=== PATIENT | female | born 1970 | race Caucasian/White ===

== ENCOUNTER → 2016-05-17 | Outpatient (CLI) | payer MEDICAID ==
[~2016-05-17] MED LIST: ALPRAZOLAM0.5 MG PO; BENADRYL ALLERG25 M3 PO; MACROBID100 M3 PO; PREDNISONE20 MG PO; Pepcid20 MG PO; TRAMADOL 50MG T50 M1 PO
[2016-05-17 14:25] LABS: AMPHETAMINES/METAMPHETAMINES NEGATIVE ng/mL (<1000)
== END ==
LOC: LAB 13:45
PROVIDERS: Emergency Medicine
DX: Z79.899 Other long term (current) drug therapy (principal)

== ENCOUNTER → 2016-08-25 | Outpatient (CLI) | payer MEDICAID ==
[2016-08-25 15:20] LABS: AMPHETAMINES/METAMPHETAMINES NEGATIVE ng/mL (<1000)
== END ==
LOC: LAB 13:26
PROVIDERS: Emergency Medicine
DX: Z79.899 Other long term (current) drug therapy (principal)

== ENCOUNTER → 2016-09-22 | Outpatient (CLI) | payer MEDICAID ==
[2016-09-22 15:36] LABS: AMPHETAMINES/METAMPHETAMINES NEGATIVE ng/mL (<1000)
== END ==
LOC: LAB 13:58
PROVIDERS: Emergency Medicine
DX: Z79.899 Other long term (current) drug therapy (principal)

== ENCOUNTER → 2017-01-12 | Outpatient (CLI) | payer MEDICAID ==
[2017-01-12 12:17] LABS: AMPHETAMINES/METAMPHETAMINES NEGATIVE ng/mL (<1000)
== END ==
LOC: LAB 11:20
PROVIDERS: Emergency Medicine
DX: Z79.899 Other long term (current) drug therapy (principal)

== ENCOUNTER → 2017-01-31 | Outpatient (CLI) | payer MEDICAID ==
--- NOTE | 2017-02-01 09:38 | RADIOLOGY REPORT PS360 ---
MRI-C-SPINE W/O, MRI-3D RENDERING/MYELOGRAM HISTORY: LUMBAR DISC DISEASE, NECK PAIN Neck pain 1 year bilateral arm pain numbness and tingling. Patient Age: 46 years: Female Ordering Physician: Raji Garza MD TECHNIQUE: Sagittal STIR, T1, T2, axial T1 and T2. On 1.5T Siemens wide bore MRI. 3-D MR myelogram image set obtained & performed on MRI workstation. Additional sagittal thin section T2 weighted dataset obtained from this latter acquisition as well (---76 CPT) COMPARISON :None available FINDINGS Cervical vertebral bodies are intact with no lesion or compression fracture. . Adequate volume underlying osseous cervical canal. Cervical cranial junction is normal. C2/3, C3/4,: disc intact and unremarkable C4/5.. Scant central disc prominence at midline. No significant protrusion C5-C6. Mild disc space narrowing. Mild diffuse spondylosis and disc bulge. Additional disc protrusion, most evident just to right of midline,,. This does abut & mildly effaces cervical cord just to the right of midline. The sagittal view shows slight caudal extrusion of this modest disc extrusion which extends along the posterior aspect of superior C6. Also Mild bilateral foraminal encroachment due to the disc & minor posterior spurring features noted..Plain film correlation would be suggested as well C6/7. Disc space is fairly well-maintained. Mild undulating disc protrusion posteriorly. At Midline this mild disc protrusion only slight indents the thecal sac;. There is also mild disc protrusion again again seen towards left paracentral towards inferior left foramen. Mild encroachment at entry of left foramen... Minor spinal stenosis is seen at both of these levels mentioned above. AP dimension spinal canal 9 mm at C5/6 and C6/7 C7/T1, T1/T2, T2/T3 disc intact. Neuroforamen patent. 3-D MR myelogram image set demonstrates the indentation upon the thecal sac at C5-C6 and C6/7. IMPRESSION Degenerative disc findings most evident C5-C6 followed by C6/7: C5-C6.... Mild broad-based minimal disc herniation, most evident to the right of midline & seen extending slightly caudal to the this disc.-This does mildly efface the cervical cord to the right of midline. Also mild bilateral foraminal encroachment due to the mild spondylosis and disc bulge otherwise seen C6/7. Mild undulating disc protrusion midline as well as to the left. This mainly indents the thecal sac at midline where it nearly abuts the cervical cord. Also mild impingement upon the left aspect of thecal sac towards left foramen Borderline to minor canal stenosis results at each of these above levels.
--- NOTE | 2017-02-01 09:49 | RADIOLOGY REPORT PS360 ---
MRI-L-SPINE W/O HISTORY: LUMBAR DISC DISEASE, NECK PAIN Patient Age: 46 years: Female Ordering Physician: Raji Garza MD TECHNIQUE: Sagittal STIR, T1, T2, axial T1 and T2. On 1.5T Siemens wide bore MRI. 3-D MR myelogram image set obtained & performed on MRI workstation. Additional sagittal thin section T2 weighted dataset obtained from this latter acquisition as well (---76 CPT) COMPARISON : FINDINGS The lumbar vertebral bodies appear intact with no compression fracture nor lesion. The disc spaces are actually fairly well-maintained except to note some slight narrowing and loss of hydration at L3/4 L5/S1 : Disc intact mild facet & ligament flavum hypertrophy. L4/5 disc intact. Modest AP dimension the neural foramen with mild facet arthropathy and minimal ligament flavum hypertrophy. L3/4 mild degenerative disc space narrowing. Mild spondylosis with Diffuse disc bulge... Moderate to generous facet hypertrophy. Combination features does narrow the spinal canal with appearance of borderline/ mild spinal stenosis developing at this level. Mild bilateral foraminal encroachment most evident to the right due to the disc bulge. There is likely some associated minimal posterior marginal osteophytes associated disc bulge & contributing to the mild foraminal encroachment bilateral along with the disc bulge. L 2/3 disc intact,.. Mild facet arthropathy/hypertrophy noted. L1/2 disc intact. Facets unremarkable. T12/L1, T11/12 and T10-11 intact. 3-D myelogram image set shows narrowing of the thecal sac at L3/4 reflecting the borderline to mild central canal stenosis here. Slight anterior indentation upon the thecal sac at L4/5 also noted due to the mild facet hypertrophy IMPRESSION: Developing degenerative disc changes most evident at L3/4 & to much lesser degree of the level. L3/4.: Degenerated disc.. Mild Spondylosis with mild disc bulge. Generous facet hypertrophy most evident on right. Combination of features yields borderline to mild central canal stenosis, as well as mild bilateral foraminal encroachment.
== END ==
LOC: RAD 01-24 14:00
DX: M54.16 Radiculopathy, lumbar region (principal); M54.2 Cervicalgia

== ENCOUNTER → 2017-02-07 | Outpatient (CLI) | payer MEDICAID ==
[2017-02-07 14:54] LABS: AMPHETAMINES/METAMPHETAMINES NEGATIVE ng/mL (<1000)
== END ==
LOC: LAB 13:55
PROVIDERS: Emergency Medicine
DX: Z79.899 Other long term (current) drug therapy (principal)

== ENCOUNTER → 2017-03-24 | Outpatient (CLI) | payer MEDICAID ==
--- NOTE | 2017-03-29 13:16 | RADIOLOGY REPORT PS360 ---
DIG MAMM-SCREEN [facility] W/CAD CAD Screening ORDERING PHYSICIAN : Vickey Garcia MD PATIENT AGE: 46 years GENDER: Female COMPARISON: Previous mammograms: Previous mammogram bilateral 12/15/2015 with right mammogram 01/06/2016. INDICATION: Routine screening takes control pills.. No new complaints. Family history. Mother and grandmother with breast cancer TECHNIQUE: Standard CC and MLO images were obtained. R2 CAD reviewed. FINDINGS: Lower density breast bilaterally with no dominant mass nor suspicious calcifications either breast. No architectural distortion. RIGHT BREAST: Stable with no new findings. LEFT BREAST:. Stable with no new findings. Follow-up in one year adequate IMPRESSION: Stable mammogram with no areas of significant concern Follow-up in one year recommended BI-RADS CATEGORY: 1_Negative RECOMMENDED FOLLOWUP: 12M 12 MONTH FOLLOW-UP (A letter has been sent to the patient regarding results of the study.)
== END ==
LOC: RAD 10:00
DX: Z12.31 Encounter for screening mammogram for malignant neoplasm of breast (principal)
CPT/HCPCS: G0202

== ENCOUNTER → 2017-04-06 | Outpatient (CLI) | payer MEDICAID ==
[2017-04-06 16:36] LABS: AMPHETAMINES/METAMPHETAMINES NEGATIVE ng/mL (<1000)
== END ==
LOC: LAB 14:24
PROVIDERS: Emergency Medicine
DX: R94.6 Abnormal results of thyroid function studies (principal); Z79.899 Other long term (current) drug therapy

== ENCOUNTER → 2017-04-25 | Outpatient (CLI) | payer MEDICAID ==
[2017-04-25 14:25] LABS: AMPHETAMINES/METAMPHETAMINES NEGATIVE ng/mL (<1000)
== END ==
LOC: LAB 12:26
PROVIDERS: Emergency Medicine
DX: Z79.899 Other long term (current) drug therapy (principal)